=== PATIENT | female | born 2000 | race Two or more races ===

== ENCOUNTER 2023-07-05 00:17 | Emergency (ER) | payer OTHER ==
[~2023-07-05] VITALS: Ht 167.6 cm; Wt 89.8 kg
[2023-07-05 03:22] LABS: URINE APPEARANCE Turbid; URINE BILIRRUBIN Negative (NEGATIVE); URINE BLOOD Moderate; URINE COLOR Yellow; URINE GLUCOSE Negative (NEGATIVE); URINE LEUKOCYTE Large; URINE NITRATE Positive; URINE PROTEIN 30 (NEGATIVE); URINE UROBILINOGEN 0.2 E.U./dl
[2023-07-05 03:22] LABS: HEMATOCRIT 37.7 % (36.0-45.00); HEMOGLOBIN 12.6 g/dL (12.0-15.00); MEAN CELL VOLUME 79.9 fL (80.00-100.00); MEAN CORPUSCULAR HEMOGLOBIN 26.7 pg (27.00-32.0); MEAN CORPUSCULAR HGB CONC 33.4 g/dl (32.0-36.0); PLATELET COUNT 209 K/uL (150-450); RED BLOOD COUNT 4.72 M/uL (4.00-6.00); RED CELL DISTRIBUTION WIDTH 14.8 % (11.5-14.5)
[2023-07-05 03:26] LABS: URINE EPITHELIAL CELLS 119.6 uL (0.0-38.8); URINE RBC 5.1 uL (0.0-20.8); URINE WBC 962.9 uL (0.0-23.2)
[2023-07-05 04:00] LABS: INR 1.03; PARTIAL THROMBOPLASTIN TIME 28.8 SECONDS (22.0-34.0); PROTHROMBIN TIME 10.8 SECONDS (9.0-11.5)
[2023-07-05 04:07] LABS: ALBUMIN 3.9 gm/dL (3.4-5.0); ALKALINE PHOSPHATASE 85 U/L (50-136); ALT/SGPT 25 U/L (12-78); AMYLASE 37 U/L (25-115); ANION GAP 11 (10.0-20.0); AST/SGOT 14 U/L (15-37); BILIRUBIN TOTAL 0.58 mg/dL (0.3-1.2); BILIRUBIN,CONJUGATED 0.14 mg/dL (0.0-0.2); BILIRUBIN,UNCONJUGATED 0.44 mg/dL (0.0-0.6); BLOOD UREA NITROGEN 15 mg/dL (7-18); BUN CREA RATIO 23 (7.0-25.0); CALCIUM 9.2 mg/dL (8.5-10.1); CARBON DIOXIDE 25 mEq/L (21-32); CHLORIDE 108 mmol/L (98-107); CREATININE SERUM 0.66 mg/dL (0.55-1.02); GFR 110.98; GLOBULINA 4.2 G/DL (2.4-3.5); GLUCOSE FASTING 101 mg/dL (65-100); LIPASE 24 U/L (13-75); OSMOLALITY SERUM 280 MOSM/KG (275-295); POTASSIUM 3.78 mEq/L (3.5-5.1); SODIUM 140 mmol/L (136-145); TOTAL PROTEIN 8.1 gm/dL (6.4-8.2)
[2023-07-05 04:09] LABS: HCG QUANTITATIVE < 1 mUI/mL (1-3)
[2023-07-05 04:13] LABS: URINE BACTERIA > 9821.5 uL (0.0-1933)
== END 2023-07-05 09:08 | disposition home or self-care (01) ==
LOC: ER 00:18
PROVIDERS: General Practice
DX: R10.9 Unspecified abdominal pain (principal)
CPT/HCPCS: 36415; 74177; Q9965